=== PATIENT | female | born 1970 | race Asian ===

== ENCOUNTER 2016-06-22 17:10 | Emergency (ER) | payer SELFPAY ==
[2016-06-22] MEDS ORDERED: MAG HYDROX/AL HYDROX/SIMETH 30 ML UNIT-DOSE CUP PO ONE (17:28)
[2016-06-22] MEDS ORDERED: FAMOTIDINE 20 MG/50 ML IVPB 50 ML IVPB ONE ×2 (17:28→17:54)
[2016-06-22] MEDS ORDERED: ACETAMINOPHEN 325 MG TABLET (FP) PO ONE (17:28)
--- NOTE | 2016-06-22 17:29 | PDOC ---
History of Present Illness - General History Source: Patient Exam Limitations: No Limitations - History of Present Illness Initial Comments: 06/22/16 17:51 The patient is a 46 year old female with no medical history, who presents to the ED with multiple complaints. Patient states she started experiencing pain in the left arm that radiated to the left flank two nights ago. Patient states the pain was extreme and it woke her up from her sleep. Patient complains of intermittent nausea, SOB, and dizziness. She complains of a tight neck as well. She is overly concerned because of extensive family history of cardiac issues. <Randy Araujo - Last Filed: 06/22/16 17:51> - General History Source: Patient Exam Limitations: No Limitations <Moreno Madrid - Last Filed: 06/22/16 19:12> - General Chief Complaint: Vomiting/Diarrhea Stated Complaint: NAUSEA, DIARRHEA SINCE YESTERDAY Time Seen by Provider: 06/22/16 17:13 Past History <Randy Araujo - Last Filed: 06/22/16 17:51> - Past Medical History Anemia: No Asthma: No Cancer: No Cardiac Disorders: No CVA: No COPD: No CHF: No Dementia: No Diabetes: No Dialysis: (AV fistula placed) GI Disorders: No Disorders: No HTN: No Hypercholesterolemia: No Liver Disease: No Seizures: No Thyroid Disease: No - Psycho/Social/Smoking Cessation Hx Anxiety: No Suicidal Ideation: No Smoking Status: No Smoking History: Unknown if ever smoked Years of Tobacco Use: 0 Number of Cigarettes Smoked Daily: 0 Hx Alcohol Use: No Drug/Substance Use Hx: No Substance Use Type: None Hx Substance Use Treatment: No <Moreno Madrid - Last Filed: 06/22/16 19:12> - Past Medical History Allergies/Adverse Reactions: Allergies Allergy/AdvReac Type Severity Reaction Status Date / Time Penicillins Allergy Verified 01/28/13 18:52 Home Medications: Ambulatory Orders Aspirin [ASA -] 81 mg PO DAILY #100 tab.chew 01/29/13 Acetaminophen [Tylenol] 650 mg PO Q4H PRN #20 tablet 06/22/16 Famotidine [Pepcid] 20 mg PO BID PRN #20 tablet 06/22/16 Review of Systems - Review of Systems Able to Perform ROS?: Yes Comments:: 06/22/16 17:52 GENERAL/CONSTITUTIONAL: No fever or chills. No weakness. HEAD, EYES, EARS, NOSE AND THROAT: No change in vision. No ear pain or discharge. No sore throat. CARDIOVASCULAR: + SOB. No chest pain. RESPIRATORY: No cough, wheezing, or hemoptysis. GASTROINTESTINAL: + nausea. No vomiting, diarrhea or constipation. GENITOURINARY: No dysuria, frequency, or change in urination. MUSCULOSKELETAL: + left arm pain radiating to the left flank. No joint or muscle swelling or pain. SKIN: No rash NEUROLOGIC: + dizziness. No headache, vertigo, loss of consciousness, or change in strength/sensation. ENDOCRINE: No increased thirst. No abnormal weight change. HEMATOLOGIC/LYMPHATIC: No anemia, easy bleeding, or history of blood clots. ALLERGIC/IMMUNOLOGIC: No hives or skin allergy. <Randy Araujo - Last Filed: 06/22/16 17:51> *Physical Exam - Physical Exam Comments: 06/22/16 17:53 GENERAL: Awake, alert, and fully oriented, in no acute distress HEAD: No signs of trauma EYES: PERRLA, EOMI, sclera anicteric, conjunctiva clear ENT: Auricles normal inspection, hearing grossly normal, nares patent, oropharynx clear without exudates. Moist mucosa NECK: Normal ROM, supple, no lymphadenopathy, JVD, or masses LUNGS: Breath sounds equal, clear to auscultation bilaterally. No wheezes, and no crackles HEART: Regular rate and rhythm, normal S1 and S2, no murmurs, rubs or gallops ABDOMEN: Tenderness over epigastric region. normoactive bowel sounds. No guarding, no rebound. No masses EXTREMITIES: Normal range of motion, no edema. No clubbing or cyanosis. No cords, erythema, or tenderness NEUROLOGICAL: Cranial nerves II through XII grossly intact. Normal speech, normal gait SKIN: Warm, Dry, normal turgor, no rashes or lesions noted. <Randy Araujo - Last Filed: 06/22/16 17:51> Heart Score/ECG Review - History History: Slightly suspicious - Electrocardiogram EKG: Non specific repolarization disturbance - Age Age: 45-65 - Risk Factors Risk Factors Heart Score: Yes Positive family hx of cardiac disease Based on the list above the patient has:: 1-2 risk factors - Troponin Troponin: </= normal limit - Score Heart Score - Total: 3 #1 ECG reviewed & interpreted by me at: 17:40 06/22/16 18:01 NSR 86, TWI V2, no std/karlene, normal axis, normal intervals, occasional PVC, QTC 457 msec <Moreno Madrid - Last Filed: 06/22/16 19:12> ED Treatment Course - LABORATORY CBC & Chemistry Diagram: 06/22/16 17:45 06/22/16 17:45 <Moreno Madrid - Last Filed: 06/22/16 19:12> Medical Decision Making - Medical Decision Making 06/22/16 18:03 A portion of this note was documented by scribe services under my direction. I have reviewed the details of the note, within reason, and agree with the documentation with the following case summary and management plan written by me. Patient treated in the ED. Nursing notes are reviewed and incorporated into the medical decision-making. Vital signs reviewed. Peripheral IV access obtained by the nurse, laboratory studies are drawn and sent, reviewed and interpreted by myself. 46-year-old female with no past medical history presents to the emergency department for left arm pain. The patient reports that 2 days ago, she started noticing she was feeling particularly gassy. She reported that she would feeling the need to belch. Has noticed that she was having left arm pain reproducible to movements. Reports some occasional nausea but denies any midsternal chest pain or shortness of breath. She reports that the pain is waxes and wanes and occur several minutes at a time. Not exertional. The patient was concerned because she has strong family history of MIs. Though the patient has strong family history, the patient's history is very atypical for acute coronary syndrome. Given that this has occurred for nearly 2 days, we'll send a troponin. EKG demonstrates no acute findings. We'll obtain labs and treat with GERD medications. Reassess. If workup is negative, the patient be discharged with outpatient cardiology follow-up. 06/22/16 19:04 CBC, BMP 06/22/16 17:45 06/22/16 17:45 CMP Sodium 139 mmol/L (136-145) 06/22/16 17:45 Potassium 3.6 mmol/L (3.5-5.1) 06/22/16 17:45 Chloride 107 mmol/L (98-107) 06/22/16 17:45 Carbon Dioxide 27 mmol/L (22-28) 06/22/16 17:45 Anion Gap 5 (8-16) L 06/22/16 17:45 BUN 15 mg/dl (7-18) D 06/22/16 17:45 Creatinine 1.0 mg/dl (0.6-1.3) D 06/22/16 17:45 Creat Clearance w eGFR 59.18 (>60) 06/22/16 17:45 Random Glucose 123 mg/dl (74-106) H 06/22/16 17:45 Calcium 9.3 mg/dl (8.4-10.2) 06/22/16 17:45 Total Bilirubin 0.4 mg/dl (0.2-1.0) 06/22/16 17:45 AST 35 U/L (10-42) D 06/22/16 17:45 ALT 29 U/L (10-40) D 06/22/16 17:45 Alkaline Phosphatase 77 U/L (32-92) D 06/22/16 17:45 Creatine Kinase 158 IU/L (26-140) H 06/22/16 17:45 CK-MB (CK-2) 3.6 ng/ml (0.3-4.0) 06/22/16 17:45 Troponin I < 0.03 ng/ml (0.03-0.50) L 06/22/16 17:45 Total Protein 7.0 g/dl (6.4-8.3) 06/22/16 17:45 Albumin 4.1 g/dl (3.5-5.0) D 06/22/16 17:45 Lipase 38 U/L (22-51) 06/22/16 17:45 Serum , Qual Positive 06/22/16 17:45 As of note, patient is known to have a positive beta hCG prior to the arrival to the ED. The patient reports that she is not but she is under current [employer] evaluation for this mildly elevated beta hCG level. She reports last week that it was approximately 8. However, we'll await the beta hCG. We'll give her a copy and have her follow-up with her [employer] doctor. She is not having any lower abdominal pain or vaginal bleeding. The patient reports feeling better with the GERD medications. I suspect that this is likely GI in origin not cardiac. But we'll give referral to a dump truck operator for further outpatient evaluation. Patient verbalizes understanding agrees with plan. I discussed the physical exam findings, ancillary test results and final diagnoses with the patient. I answered all of the patient's questions. The patient was satisfied with the care received and felt comfortable with the discharge plan and treatment plan. The patient will call their primary care physician within 24 hours to arrange follow-up and will return to the Emergency Department with any new, persistant or worsening symptoms. <Moreno Madrid - Last Filed: 06/22/16 19:12> *DC/Admit/Observation/Transfer - Attestations Scribe Attestion: 06/22/16 17:53 Documentation prepared by Randy Araujo, acting as medical delivery technician for Moreno Madrid MD, . <Randy Araujo - Last Filed: 06/22/16 17:51> - Discharge Dispostion Admit: No <Moreno Madrid - Last Filed: 06/22/16 19:12> Diagnosis at time of Disposition: Atypical chest pain Gastritis Qualifiers: Gastritis type: unspecified gastritis Chronicity: acute Gastritis bleeding: without bleeding Qualified Code(s): K29.00 - Acute gastritis without bleeding - Discharge Dispostion Disposition: HOME Condition at time of disposition: Good - Prescriptions Prescriptions: Famotidine [Pepcid] 20 mg PO BID PRN #20 tablet PRN Reason: Gastritis Acetaminophen [Tylenol] 650 mg PO Q4H PRN #20 tablet PRN Reason: Pain - Referrals Referrals: Marizol Clement MD [Primary Care Provider] - Rebel Chaudhari MD [Staff Physician] - - Patient Instructions Printed Discharge Instructions: DI for Atypical Chest Pain, DI for Gastritis Additional Instructions: Please take the medications as prescribed. Your workup demonstrates a negative troponin and a stable EKG. At this time, you are cleared to be discharged. However, because severe family history, it is highly highly recommended that she follow up with the dump truck operator. You should be followed by one. If he notices any worsening chest pain, please return to the emergency department. In the meantime, take the medications prescribed for the pain. Regards to your beta hCG, it is important that she take this blood value and bring it to your [facility] doctor as prior.
[2016-06-22] MEDS ORDERED: ACETAMINOPHEN 325 MG TABLET (FP) ONE (17:54)
[2016-06-22 18:01] LABS: BASOPHIL 0.9 % (0-2.0); MCH 30.1 pg (25.7-33.7); MCHC 33.6 g/dl (32.0-36.0); MEAN CELL VOLUME 89.8 fl (80-96); MEAN PLT VOLUME 8.3 fl (7.5-11.1); NEUTROPHILS 50.3 % (42.8-82.8); PLATELET COUNT 348 K/MM3 (134-434); RDW 13.1 % (11.6-15.6); WHITE BLOOD COUNT 9.1 K/mm3 (4.0-10.0)
[2016-06-22 18:12] LABS: ALBUMIN 4.1 g/dl (3.5-5.0); ALK PHOS 77 U/L (32-92); ANION GAP 5 (8-16); BILIRUBIN,TOTAL 0.4 mg/dl (0.2-1.0); CALCIUM 9.3 mg/dl (8.4-10.2); CO2 27 mmol/L (22-28); CPK(DFH) 158 IU/L (26-140); GLUCOSE,RANDOM 123 mg/dl (74-106); SGOT/AST 35 U/L (10-42); SGPT/ALT 29 U/L (10-40)
[2016-06-22 18:39] VITALS: BP 115/76; PULSE 86; TEMP 98.6; BMI 28.1
[2016-06-22 18:43] LABS: TROPONIN I (DFP) < 0.03 ng/ml (0.03-0.50)
[2016-06-22 18:49] LABS: CK MB 3.6 ng/ml (0.3-4.0)
--- NOTE | 2016-06-22 20:04 | PDOC ---
*Physical Exam - Vital Signs Last Vital Signs Temp Pulse Resp BP Pulse Ox 98.6 F 86 16 115/76 99 06/22/16 17:12 06/22/16 17:12 06/22/16 17:12 06/22/16 17:12 06/22/16 17:12 06/22/16 20:51 ED Treatment Course - LABORATORY CBC & Chemistry Diagram: 06/22/16 17:45 06/22/16 17:45 - ADDITIONAL ORDERS Additional order review: Laboratory Results 06/22/16 06/22/16 06/22/16 17:45 17:45 17:45 Sodium 139 Potassium 3.6 Chloride 107 Carbon Dioxide 27 Anion Gap 5 L BUN 15 D Creatinine 1.0 D Creat Clearance w eGFR 59.18 Random Glucose 123 H Calcium 9.3 Total Bilirubin 0.4 AST 35 D ALT 29 D Alkaline Phosphatase 77 D Creatine Kinase 158 H CK-MB (CK-2) 3.6 Troponin I < 0.03 L Total Protein 7.0 Albumin 4.1 D Lipase 38 Serum , Qual Positive 06/22/16 17:45 RBC 4.39 MCV 89.8 MCHC 33.6 RDW 13.1 MPV 8.3 Neutrophils % 50.3 Lymphocytes % 40.9 H Monocytes % 5.9 Eosinophils % 2.0 Basophils % 0.9 - Medications Given in the ED: ED Medications Discontinued Medications Generic Name Dose Route Start Last Admin Trade Name Freq PRN Reason Stop Dose Admin Acetaminophen 650 mg 06/22/16 17:28 06/22/16 17:55 Tylenol - PO 06/22/16 17:29 650 mg ONCE ONE Administration Famotidine/Sodium Chloride 50 mls @ 100 mls/hr 06/22/16 17:28 06/22/16 18:00 Pepcid 20 Mg Premixed Ivpb - IVPB 06/22/16 17:57 100 mls/hr ONCE ONE Administration Progress Note - Progress Note Progress Note: The care of this patient was transferred to [place] from Dr. Madrid at 1900 hrs. Patient has a beta hCG quantitative pending. Patient will be discharged once beta hCG is back. *DC/Admit/Observation/Transfer Diagnosis at time of Disposition: Atypical chest pain Gastritis Qualifiers: Gastritis type: unspecified gastritis Chronicity: acute Gastritis bleeding: without bleeding Qualified Code(s): K29.00 - Acute gastritis without bleeding - Discharge Dispostion Disposition: HOME Condition at time of disposition: Good - Prescriptions Prescriptions: Famotidine [Pepcid] 20 mg PO BID PRN #20 tablet PRN Reason: Gastritis Acetaminophen [Tylenol] 650 mg PO Q4H PRN #20 tablet PRN Reason: Pain - Referrals Referrals: Marizol Clement MD [Primary Care Provider] - Rebel Chaudhari MD [Staff Physician] - - Patient Instructions Printed Discharge Instructions: DI for Gastritis, DI for Atypical Chest Pain Additional Instructions: Please take the medications as prescribed. Your workup demonstrates a negative troponin and a stable EKG. At this time, you are cleared to be discharged. However, because severe family history, it is highly highly recommended that she follow up with the supervisor of officials. You should be followed by one. If he notices any worsening chest pain, please return to the emergency department. In the meantime, take the medications prescribed for the pain. Regards to your beta hCG, it is important that she take this blood value and bring it to your [employer] doctor as prior. - Post Discharge Activity
--- NOTE | 2016-06-23 13:42 | EKG ---
Test Reason : Blood Pressure : / mmHG Vent. Rate : 086 BPM Atrial Rate : 086 BPM P-R Int : 184 ms QRS Dur : 086 ms QT Int : 382 ms P-R-T Axes : 075 089 068 degrees QTc Int : 457 ms SINUS RHYTHM WITH OCCASIONAL PREMATURE VENTRICULAR COMPLEXES NONSPECIFIC ST ABNORMALITY ABNORMAL ECG WHEN COMPARED WITH ECG OF 26-SEP-2011 14:49, PREMATURE VENTRICULAR COMPLEXES ARE NOW PRESENT VENT. RATE HAS INCREASED BY 33 BPM QT HAS LENGTHENED CLINICAL CORRELATION IS RECOMMENDED Confirmed by PATRICK FREEMAN MD ([id number]) on 06/23/2016 1:41:29 PM Referred By: BRIDGETTE Confirmed By:PATRICK FREEMAN MD
== END 2016-06-22 20:55 | disposition home or self-care (01) ==
LOC: FER 17:10
PROC: 3E033GC Introduction of Other Therapeutic Substance into Peripheral Vein, Percutaneous Approach (ICD-10-PCS; principal; 2016-06-22)
DX: K29.00 Acute gastritis without bleeding (principal); R07.89 Other chest pain; Z79.82 Long term (current) use of aspirin
CPT/HCPCS: 36415; 80053; 82550; 82553; 83690; 84484; 84702; 84703; 85025; 93005; 99282-25

== ENCOUNTER 2017-06-15 09:24 | Emergency (ER) | payer OTHER ==
--- NOTE | 2017-06-15 09:28 | PDOC ---
History of Present Illness - General Chief Complaint: Pain Stated Complaint: F/U LEG ULTRASOUND, ABD, BACK PAIN Time Seen by Provider: 06/15/17 09:28 - History of Present Illness Initial Comments: 06/15/17 10:40 Chief complaint: Upper back pain History of present illness: Since last night the patient has experienced upper back pain which interfered with her sleep, located between the scapulae, radiating to left arm, with numbness and tingling in the thumb index and middle fingers of her left hand. The numbness and tingling has been intermittent for many years and is unchanged. There was also epigastric pain at the time. All symptoms have now resolved. In addition, she has persistent leg pain that was evaluated with an ultrasound last week. 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 She was advised to return for follow-up by the ER physician at that time. Review of systems: Remainder systems reviewed and found to be negative Past medical, social, and family history reviewed. Father with DE at age 62, otherwise negative. Physical exam: Alert oriented well-developed well-nourished in no acute distress cheerful and cooperative. Her symptoms of last night have resolved completely. There is still residual pain in her knee, presumably from her Mackenzie cyst, which has been present for over one month Afebrile, vital signs normal PERRLA, fundi benign, ENT clear Neck supple without bruit mass or nodes Chest clear CV regular without murmur rub or gallop Abdomen soft nontender without mass or organomegaly Neurological C2 to 12 intact. Strength full and symmetric. No focal sensory or motor deficits. Gait stable and unimpaired Musculoskeletal: There is trigger point tenderness at the border of the left scapula, medially. No spinal deformity point tenderness or inflammation Impression: Symptoms do not suggest an acute coronary syndrome, but because of the patient's concern and her family history initial cardiac evaluation should be performed. No sign of DVT. No sign of other neurologic disease Plan: EKG and enzymes, wrist braces and orthopedic referral for carpal tunnel, orthopedic referral for Mackenzie cyst if ultrasound is negative. Past History - Past Medical History Allergies/Adverse Reactions: Allergies Allergy/AdvReac Type Severity Reaction Status Date / Time Penicillins Allergy Verified 06/15/17 09:26 Home Medications: Ambulatory Orders Ibuprofen [Motrin -] 600 mg PO TID #90 tablet 06/07/17 Naproxen Sodium [Aleve] 440 mg PO BID PRN 06/07/17 Aspirin [Aspirin EC] 81 mg PO Q48H 06/15/17 Anemia: No Asthma: No Cancer: No Cardiac Disorders: No CVA: No COPD: No CHF: No Dementia: No Diabetes: No Dialysis: (AV fistula placed) GI Disorders: No Disorders: No HTN: No Hypercholesterolemia: No Liver Disease: No Psychiatric Problems: Yes (ANXIETY & DEPRESSION) Seizures: No Thyroid Disease: No - Surgical History Appendectomy: Yes - Suicide/Smoking/Psychosocial Hx Smoking Status: No Smoking History: Unknown if ever smoked Years of Tobacco Use: 0 Number of Cigarettes Smoked Daily: 0 Hx Alcohol Use: No Drug/Substance Use Hx: No Substance Use Type: None Hx Substance Use Treatment: No ED Treatment Course - LABORATORY CBC & Chemistry Diagram: 06/15/17 10:21 06/15/17 10:21 Medical Decision Making - Medical Decision Making 06/15/17 12:31 Venous Doppler: Negative EKG: No acute ischemic changes Labs: No significant abnormalities, with normal cardiac enzymes Patient's symptoms of upper back pain radiating to the left shoulder are most likely musculoskeletal. Her chronic tingling of both hands, especially during the night and when she wakes up in the morning, are typical of carpal tunnel. 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 No evidence of DVT. Plan: Symptomatic treatment and orthopedic referral. Fully ambulatory, comfortable, in no significant pain or other distress upon discharge to follow- up as directed *DC/Admit/Observation/Transfer Diagnosis at time of Disposition: Mackenzie cyst Qualifiers: Laterality: unspecified laterality Qualified Code(s): M71.20 - Synovial cyst of popliteal space [Mackenzie], unspecified knee Carpal tunnel syndrome Qualifiers: Laterality: bilateral Qualified Code(s): G56.03 - Carpal tunnel syndrome, bilateral upper limbs - Discharge Dispostion Disposition: HOME Condition at time of disposition: Stable Admit: No - Referrals Referrals: Sherif Lai MD [Primary Care Provider] - 1 week Henrique Lu MD [Staff Physician] - 1 week - Patient Instructions Printed Discharge Instructions: DI for Mackenzie's Cyst, DI for Carpal Tunnel Syndrome Additional Instructions: Wear a wrist brace at night. This may help your hand symptoms See orthopedist for further treatment of your Mackenzie cyst and carpal tunnel. - Post Discharge Activity
[2017-06-15 09:36] VITALS: BP 122/82; PULSE 82; TEMP 98.2; BMI 29.0
[2017-06-15 10:36] LABS: BASO % 0.7 % (0-2.0); EOS % 2.7 % (0-4.5); HEMATOCRIT 38.9 % (32.4-45.2); HEMOGLOBIN 13.1 GM/dl (10.7-15.3); LYMPH % 37.4 % (8-40); MCH 30.7 pg (25.7-33.7); MCHC 33.7 g/dl (32.0-36.0); MEAN CELL VOLUME 91.2 fl (80-96); MEAN PLT VOLUME 8.1 fl (7.5-11.1); MONO % 9.9 % (3.8-10.2); NEUT % 49.3 % (42.8-82.8); PLATELET COUNT 333 K/MM3 (134-434); RBC 4.26 M/mm3 (3.60-5.2); RDW 13.1 % (11.6-15.6); WHITE BLOOD COUNT 7.9 K/mm3 (4.0-10.8)
[2017-06-15 11:00] LABS: ALBUMIN 3.9 g/dl (3.5-5.0); ALK PHOS 75 U/L (32-92); ANION GAP 3 (8-16); BILIRUBIN,TOTAL 0.4 mg/dl (0.2-1.0); BLOOD UREA NITROGEN 14 mg/dl (7-18); CHLORIDE 106 mmol/L (98-107); CO2 27 mmol/L (22-28); CREATININE 0.5 mg/dl (0.6-1.3); GLUCOSE,RANDOM 99 mg/dl (74-106); POTASSIUM 4.2 mmol/L (3.5-5.1); SGOT/AST 37 U/L (10-42); SGPT/ALT 52 U/L (10-40); SODIUM 136 mmol/L (136-145); TOT PROT 6.7 g/dl (6.4-8.3)
[2017-06-15] MEDS ORDERED: IBUPROFEN 600 MG TABLET (FP) PO ONE ×2 (11:31→11:36)
--- NOTE | 2017-06-16 13:03 | EKG ---
Test Reason : Blood Pressure : / mmHG Vent. Rate : 082 BPM Atrial Rate : 082 BPM P-R Int : 204 ms QRS Dur : 092 ms QT Int : 368 ms P-R-T Axes : 068 067 045 degrees QTc Int : 429 ms SINUS RHYTHM WITH SINUS ARRHYTHMIA WITH OCCASIONAL PREMATURE VENTRICULAR COMPLEXES OTHERWISE NORMAL ECG WHEN COMPARED WITH ECG OF 22-JUN-2016 17:39, NO SIGNIFICANT CHANGE WAS FOUND Confirmed by TRAN OLSON, LACY ([id number]) on 06/16/2017 1:03:22 PM Referred By: TOM REIS Confirmed By:LACY MAYFIELD MD
== END 2017-06-15 12:40 | disposition home or self-care (01) ==
LOC: FER 09:24
DX: M71.20 Synovial cyst of popliteal space [Baker], unspecified knee (principal); G56.03 Carpal tunnel syndrome, bilateral upper limbs
CPT/HCPCS: 36415; 80053; 82550; 84484; 85025; 93005; 93971-TC; 99284-25

== ENCOUNTER 2018-01-04 17:47 | Emergency (ER) | payer OTHER ==
[2018-01-04 17:52] VITALS: BMI 28.8
[2018-01-04 18:59] LABS: URINE APPEARANCE Clear; URINE BILIRUBIN Negative (NEGATIVE); URINE COLOR Yellow; URINE GLUCOSE (UA) Negative (NEGATIVE); URINE KETONE Negative (NEGATIVE); URINE LEUK ESTERASE 1+ (NEGATIVE); URINE NITRITE Negative (NEGATIVE); URINE PROTEIN Negative (NEGATIVE); URINE UROBILINOGEN 0.2 (0.2-1.0)
[2018-01-04 19:05] LABS: HCG,QUALITATIVE URINE Negative
[2018-01-04 19:13] LABS: EPI CELLS FEW /HPF; URINE BACTERIA 2+ /hpf (NEGATIVE); URINE RBC 0-2 /hpf (0-3)
[2018-01-04 19:17] LABS: BASO % 0.5 % (0-2.0); EOS % 2.2 % (0-4.5); HEMATOCRIT 40.5 % (32.4-45.2); HEMOGLOBIN 13.2 GM/dl (10.7-15.3); LYMPH % 44.6 % (8-40); MCH 30.3 pg (25.7-33.7); MCHC 32.7 g/dl (32.0-36.0); MEAN CELL VOLUME 92.6 fl (80-96); MEAN PLT VOLUME 8.1 fl (7.5-11.1); MONO % 7.6 % (3.8-10.2); NEUT % 45.1 % (42.8-82.8); PLATELET COUNT 347 K/MM3 (134-434); RBC 4.37 M/mm3 (3.60-5.2); RDW 13.3 % (11.6-15.6); WHITE BLOOD COUNT 7.8 K/mm3 (4.0-10.8)
[2018-01-04 19:32] LABS: ALBUMIN 4.1 g/dl (3.5-5.0); ALK PHOS 71 U/L (32-92); ANION GAP 2 MMOL/L (8-16); BILIRUBIN,TOTAL 0.4 mg/dl (0.2-1.0); BLOOD UREA NITROGEN 14 mg/dl (7-18); CHLORIDE 106 mmol/L (98-107); CO2 28 mmol/L (22-28); GLUCOSE,RANDOM 119 mg/dl (74-106); POTASSIUM 3.8 mmol/L (3.5-5.1); SGOT/AST 36 U/L (10-42); SGPT/ALT 47 U/L (10-40); SODIUM 136 mmol/L (136-145); TOT PROT 7.2 g/dl (6.4-8.3)
[2018-01-04 19:33] LABS: CREATININE < 0.6 mg/dl (0.6-1.3)
--- NOTE | 2018-01-04 19:38 | PDOC ---
History of Present Illness <Tsering Phillips - Last Filed: 01/04/18 20:18> <Vandana Linder - Last Filed: 01/05/18 01:33> - General Chief Complaint: Chest Pain Stated Complaint: CHEST PAIN Time Seen by Provider: 01/04/18 19:32 - History of Present Illness Initial Comments: 01/04/18 19:40 The patient is a 37 year old female, with a significant past medical history GERD, who presents to the emergency department with complaint of intermittent, sharp left upper chest pain lasting minutes and recurring every hour since yesterday. She denies radiation pain, however, reports a separate intermittent pain to her upper back. She states she had a 5 minute episode of left arm pain radiating from her left neck with associated numbness to her first 3 digits of her LUE. She states she started a new job which requires her to look up at a computer screen and admits to feeling a neck strain while doing so. She denies any exacerbating or alleviating factors of chest pain. She states she has been eating just before going to sleep for the past couple of days. She denies taking any OTC medications for her symptoms. She denies any other associated symptoms. Secondarily she reportedly started working out in the gym the day before her onset of symptoms. She reportedly had a normal cardiac echo, stress test, and holter within 1 year. The patient denies shortness of breath, headache and dizziness. The patient denies fever, chills, nausea, vomit, diarrhea and constipation. The patient denies dysuria, frequency, urgency and hematuria. Allergies: Penicillins Past surgical history: none reported Social history: Denies toxic habits Family History: ACS (Sudden cardiac demise: aunt 40s, nephew 32, father early 60s) (Tsering Phillips) Past History <Tsering Phillips - Last Filed: 01/04/18 20:18> - Past Medical History Anemia: No Asthma: No Cancer: No Cardiac Disorders: No CVA: No COPD: No CHF: No Dementia: No Diabetes: No Dialysis: (AV fistula placed) GI Disorders: No Disorders: No HTN: No Hypercholesterolemia: No Liver Disease: No Psychiatric Problems: Yes (ANXIETY & DEPRESSION) Seizures: No Thyroid Disease: No - Surgical History Appendectomy: Yes - Suicide/Smoking/Psychosocial Hx Smoking Status: No Smoking History: Never smoked Years of Tobacco Use: 0 Number of Cigarettes Smoked Daily: 0 Hx Alcohol Use: No Drug/Substance Use Hx: No Substance Use Type: None Hx Substance Use Treatment: No <Vandana Linder - Last Filed: 01/05/18 01:33> - Past Medical History Allergies/Adverse Reactions: Allergies Allergy/AdvReac Type Severity Reaction Status Date / Time Penicillins Allergy Verified 01/04/18 17:48 Home Medications: Ambulatory Orders Ibuprofen [Motrin -] 600 mg PO TID #90 tablet 06/07/17 Naproxen Sodium [Aleve] 440 mg PO BID PRN 06/07/17 Aspirin [Aspirin EC] 81 mg PO Q48H 06/15/17 Cardiac Specific PMH - Complaint Specific PMHX Pacemaker: No <Vandana Linder - Last Filed: 01/05/18 01:33> Review of Systems - Review of Systems Able to Perform ROS?: Yes <Tsering Phillips - Last Filed: 01/04/18 20:18> <Vandana Linder - Last Filed: 01/05/18 01:33> - Review of Systems Comments:: 01/04/18 19:40 CONSTITUTIONAL: Absent: fever, chills, diaphoresis, generalized weakness, malaise, loss of appetite HEENT: Absent: rhinorrhea, nasal congestion, throat pain, throat swelling, difficulty swallowing,mouth swelling, ear pain, eye pain, visual Changes CARDIOVASCULAR: (+) chest pain, Absent:syncope, palpitations, irregular heart rate, lightheadedness, peripheral edema RESPIRATORY: Absent: cough, shortness of breath, dyspnea with exertion, orthopnea, wheezing, stridor, hemoptysis GASTROINTESTINAL: Absent: abdominal pain, abdominal distension, nausea, vomiting, diarrhea, constipation, melena, hematochezia GENITOURINARY: Absent: dysuria, frequency, urgency, hesitancy, hematuria, flank pain, genital pain MUSCULOSKELETAL: (+) upper back pain. Absent: arthralgia, joint swelling SKIN: Absent: rash, itching, pallor HEMATOLOGIC/IMMUNOLOGIC: Absent: easy bleeding, easy bruising, lymphadenopathy, frequent infections ENDOCRINE: Absent: unexplained weight gain, unexplained weight loss, heat intolerance, cold intolerance NEUROLOGIC: Absent: headache, focal weakness or paresthesias, dizziness, unsteady gait, seizure, mental status changes, bladder or bowel incontinence PSYCHIATRIC: Absent: anxiety, depression, suicidal or homicidal ideation, hallucinations. (Tsering Phillips) *Physical Exam <Tsering Phillips - Last Filed: 01/04/18 20:18> <Vandana Linder - Last Filed: 01/05/18 01:33> - Vital Signs Last Vital Signs Temp Pulse Resp BP Pulse Ox 98.5 F 81 16 115/81 100 01/04/18 20:13 01/04/18 20:13 01/04/18 20:13 01/04/18 20:13 01/04/18 20:13 - Physical Exam Comments: 01/04/18 19:41 GENERAL: The patient is awake, alert, and fully oriented, in no acute distress. HEAD: Normal with no signs of trauma. EYES: Pupils equal, round and reactive to light, extraocular movements intact, sclera anicteric, conjunctiva clear with no pallor. ENT: Ears normal, nares patent, oropharynx clear without exudates. Moist mucous membranes. NECK: Normal range of motion, supple without lymphadenopathy, JVD, or masses. LUNGS: Breath sounds equal, clear to auscultation bilaterally. No wheeze/ crackles. HEART: Regular rate and rhythm, normal S1 and S2 without murmur or rub. ABDOMEN: Soft/nontender/nondistended. BS wnl. No guarding or rebound. No palpable masses. No hepatosplenomegaly. EXTREMITIES: Normal range of motion, no edema. No clubbing or cyanosis. No cords , erythema, or tenderness. NEUROLOGICAL: Cranial nerves II through XII grossly intact. Normal speech, normal gait. PSYCH: Normal mood, normal affect. SKIN: Warm, Dry, normal turgor, no rashes or lesions noted. (Tsering Phillips) ED Treatment Course - LABORATORY CBC & Chemistry Diagram: 01/04/18 19:00 01/04/18 19:00 <Tsering Phillips - Last Filed: 01/04/18 20:18> - LABORATORY CBC & Chemistry Diagram: 01/04/18 19:00 01/04/18 19:00 <Vandana Linder - Last Filed: 01/05/18 01:33> - ADDITIONAL ORDERS Additional order review: Laboratory Results 01/04/18 01/04/1801/04/18 19:00 19:00 18:50 Sodium 136 Potassium 3.8 Chloride 106 Carbon Dioxide 28 Anion Gap 2 L BUN 14 Creatinine < 0.6 L Creat Clearance w eGFR > 60 Random Glucose 119 H D Calcium 9.0 Total Bilirubin 0.4 AST 36 ALT 47 H Alkaline Phosphatase 71 Creatine Kinase 101 Troponin I < 0.03 Total Protein 7.2 Albumin 4.1 Urine Color Yellow Urine Appearance Clear Urine pH 7.0 Ur Specific [place] 1.010 Urine Protein Negative Urine Glucose (UA) Negative Urine Ketones Negative Urine Blood Negative Urine Nitrite Negative Urine Bilirubin Negative Urine Urobilinogen 0.2 Ur Leukocyte Esterase 1+ H Urine RBC 0-2 Urine WBC 5-10 Ur Epithelial Cells Few Urine Bacteria 2+ Urine HCG, Qual Negative 01/04/18 19:00 RBC 4.37 MCV 92.6 MCHC 32.7 RDW 13.3 MPV 8.1 Neutrophils % 45.1 Lymphocytes % 44.6 H Monocytes % 7.6 Eosinophils % 2.2 Basophils % 0.5 - Medications Given in the ED: ED Medications Discontinued Medications Generic Name Dose Route Start Last Admin Trade Name Christopher PRN Reason Stop Dose Admin Al Hydroxide/Mg Hydroxide 30 ml 01/04/18 19:52 01/04/18 20:10 Mylanta Oral Suspension - PO 01/04/18 19:53 30 ml ONCE ONE Administration Famotidine 20 mg 01/04/18 19:53 01/04/18 20:10 Pepcid - PO 01/04/18 19:54 20 mg ONCE ONE Administration Medical Decision Making <Tsering Phillips - Last Filed: 01/04/18 20:18> <Vandana Linder - Last Filed: 01/05/18 01:33> - Medical Decision Making Documentation has been prepared under my direction and personally reviewed by me in its entirety. I attest that this documented accurately reflects all work, treatment, procedures and medical decision making performed by me. As noted above, this 47-year-old woman with a history of GERD and strong family history of sudden cardiac , presents with a few day history of left-sided chest pain as well as left arm pain. Of note, the chest pain began the day after the patient started going to a gym. Also, her left arm pain is accompanied by some intermittent finger numbness. She has been having recent neck and left upper back pain after using a new monitor at work. No other associated symptoms. Exam as noted. Twelve-lead electrocardiogram performed and interpreted by me. This shows normal sinus rhythm at 81 bpm; intervals, wave forms and axis are all normal. There is no evidence of acute ST or T-wave abnormalities. No evidence of acute arrhythmia. Laboratory evaluation including troponin are essentially normal except for urinalysis which shows 2+ LE/wbcs/RBCs and bacteria. Patient has no symptoms consistent with UTI, however, urine culture and sensitivity has been sent Clinical presentation most consistent with atypical chest pain: GERD as well as muscle strain or cervical spinal nerve issues may be possible causes of her pain. Patient was given Pepcid and Mylanta to address GERD symptoms. Patient was seen by director financial services within the last year for similar symptoms with negative workup as noted above. She will follow up again with her director financial services within the next week. She should return to the ER if she has any persistent symptoms of chest pain, shortness of breath, palpitations. (Vandana Linder) *DC/Admit/Observation/Transfer <Tsering Phillips - Last Filed: 01/04/18 20:18> <Vandana Linder - Last Filed: 01/05/18 01:33> Diagnosis at time of Disposition: Atypical chest pain - Discharge Dispostion Disposition: HOME Condition at time of disposition: Stable - Patient Instructions Printed Discharge Instructions: DI for Atypical Chest Pain Additional Instructions: Avoid strenuous upper body exercise for the next week followup with your director financial services within the next week return to ER immediately if you have persistent chest/arm pain - Attestations Scribe Attestion: 01/04/18 19:41 Documentation prepared by Tsering Phillips, acting as senior medical technologist for Vandana Linder MD (Tsering Phillips)
[2018-01-04] MEDS ORDERED: MAG HYDROX/AL HYDROX/SIMETH 30 ML UNIT-DOSE CUP PO ONE (19:52)
[2018-01-04] MEDS ORDERED: FAMOTIDINE 20 MG TABLET PO ONE (19:53)
[2018-01-04] MEDS ORDERED: MAG HYDROX/AL HYDROX/SIMETH 30 ML UNIT-DOSE CUP ONE (20:03)
[2018-01-04] MEDS ORDERED: FAMOTIDINE 20 MG TABLET ONE (20:04)
[2018-01-04 20:17] VITALS: BP 115/81; PULSE 81; TEMP 98.5
--- NOTE | 2018-01-05 09:57 | EKG ---
Test Reason : Blood Pressure : / mmHG Vent. Rate : 081 BPM Atrial Rate : 081 BPM P-R Int : 186 ms QRS Dur : 088 ms QT Int : 384 ms P-R-T Axes : 056 068 052 degrees QTc Int : 446 ms NORMAL SINUS RHYTHM NORMAL ECG WHEN COMPARED WITH ECG OF 15-JUN-2017 09:47, PREMATURE VENTRICULAR COMPLEXES ARE NO LONGER PRESENT Confirmed by TRAN OLSON, LACY ([id number]) on 01/05/2018 9:57:05 AM Referred By: DR LAURENT Confirmed By:LACY MAYFIELD MD
== END 2018-01-04 20:24 | disposition home or self-care (01) ==
LOC: FER 17:47
DX: R07.89 Other chest pain (principal); K21.9 Gastro-esophageal reflux disease without esophagitis; Z82.41 Family history of sudden cardiac death
CPT/HCPCS: 36415; 80053; 81003; 81015; 82550; 84484; 84703; 85025; 87086; 93005; 99283-25

== ENCOUNTER 2019-03-26 12:31 | Emergency (ER) | payer OTHER ==
--- NOTE | 2019-03-26 12:49 | PDOC ---
History of Present Illness - General Chief Complaint: Respiratory Stated Complaint: FLU Time Seen by Provider: 03/26/19 12:49 - History of Present Illness Initial Comments: 03/26/19 14:16 Pt presents to the ED complaining of the acute onset of cough, subjective fever , myalgias, nausea and vomiting yesterday. Febrile to 104 at home. Denies past medical history. Several episodes of non bloody, non bilious vomiting. Past History - Past Medical History Allergies/Adverse Reactions: Allergies Allergy/AdvReac Type Severity Reaction Status Date / Time Penicillins Allergy Verified 03/26/19 12:38 Home Medications: Ambulatory Orders Ibuprofen [Motrin -] 600 mg PO TID PRN 03/26/19 Oseltamivir Phosphate [Tamiflu] 75 mg PO BID #10 capsule 03/26/19 Anemia: No Asthma: No Cancer: No Cardiac Disorders: No CVA: No COPD: No CHF: No Dementia: No Diabetes: No Dialysis: (AV fistula placed) GI Disorders: No Disorders: No HTN: No Hypercholesterolemia: No Liver Disease: No Psychiatric Problems: Yes (ANXIETY & DEPRESSION) Seizures: No Thyroid Disease: No - Surgical History Appendectomy: Yes - Psycho Social/Smoking Cessation Hx Smoking Status: No Smoking History: Never smoked Years of Tobacco Use: 0 Number of Cigarettes Smoked Daily: 0 Hx Alcohol Use: No Drug/Substance Use Hx: No Substance Use Type: None Hx Substance Use Treatment: No Review of Systems - Review of Systems Able to Perform ROS?: Yes Is the patient limited Gambian proficient: No Constitutional: Yes: Chills, Fever, Night Sweats HEENTM: No: Symptoms Reported, See HPI, Eye Pain, Blurred Vision, Tearing, Recent change in vision, Double Vision, Cataracts, Ear Pain, Ocular Prothesis, Ear Discharge, Nose Pain, Nose Congestion, Tinnitus, Nose Bleeding, Hearing Loss , Throat Pain, Throat Swelling, Mouth Pain, Dental Problems, Difficulty Swallowing, Mouth Swelling, Other Respiratory: Yes: Cough Cardiac (ROS): No: Symptoms Reported, See HPI, Chest Pain, Edema, Irregular Heart Rate, Lightheadedness, Palpitations, Syncope, Chest Tightness, Other ABD/GI: Yes: Nausea, Vomiting : No: Symptoms Reported, See HPI, Burning, Dysuria, Discharge, Frequency, Flank Pain, Hematuria, Incontinence, Pain, Urgency, Testicular Mass, Testicular Swelling, Lesions, Testicular Pain, Other Musculoskeletal: Yes: Muscle Pain All Other Systems: Reviewed and Negative *Physical Exam - Physical Exam 03/26/19 14:58 Gen: alert, NAD HEENT: throat no erythema or exudate CV: rrr no m/r/g Pulm: CTA b/l abd: soft, non tender, non distended, no guarding or rebound Medical Decision Making - Medical Decision Making 03/26/19 15:00 Pt presents to the ED complaining of nausea, vomiting, fever, body aches and myalgias. Symptoms are most consistent with flu or other viral syndrome. Febrile and tachycardic in the ED. Will treat with IV hydration, check flu swab and reassess. Discharge - Discharge Information Problems reviewed: Yes Clinical Impression/Diagnosis: Influenza A Condition: Good - Admission No - Follow up/Referral Referrals: Sherif Lai MD [Primary Care Provider] - - Patient Discharge Instructions Patient Printed Discharge Instructions: DI for Influenza -- Adult Additional Instructions: you came to the ED for fever and vomiting. You tested positive for the flu, which is probably causing your symptoms. I prescribed a medicine called tamiflu , which should help make the illness shorter. You should return to the ED for worsening symptoms, including severe nausea and vomiting, unable to keep fluids down, severe chest or abdominal pain, severe headache or confusion, shortness of breath, other new or worsening symptoms. - Post Discharge Activity
[2019-03-26 12:55] VITALS: BMI 27.9
[2019-03-26] MEDS ORDERED: SODIUM CHLORIDE 0.9% 500 ML INFUS.BAG IV ONE (13:09)
[2019-03-26] MEDS ORDERED: ACETAMINOPHEN 1000 MG/100 ML VIAL (NON FORMULARY) IVPB ONE (13:10)
[2019-03-26] MEDS ORDERED: ACETAMINOPHEN INJECTION 100 ML IVPB ONE (13:54)
[2019-03-26 16:34] VITALS: BP 105/63; PULSE 90; TEMP 99.3
[2019-03-26] MEDS ORDERED: ONDANSETRON *ODT* 4 MG TABLET SL ONE (16:38)
[2019-03-26] MEDS ORDERED: ONDANSETRON *ODT* 4 MG TABLET ONE (16:38)
== END 2019-03-26 16:48 | disposition home or self-care (01) ==
LOC: FER 12:31
PROC: 3E033NZ Introduction of Analgesics, Hypnotics, Sedatives into Peripheral Vein, Percutaneous Approach (ICD-10-PCS; principal; 2019-03-26)
DX: J09.X2 Influenza due to identified novel influenza A virus with other respiratory manifestations (principal); Z88.0 Allergy status to penicillin; F41.8 Other specified anxiety disorders
CPT/HCPCS: 87804; 99283-25; J0131; Q0162

== ENCOUNTER 2021-06-20 19:15 | Emergency (ER) | payer OTHER ==
[2021-06-20] MEDS ORDERED: ACETAMINOPHEN 500 MG TABLET (FP) PO ONE (19:35)
[2021-06-20 19:37] VITALS: BMI 27.6
[2021-06-20] MEDS ORDERED: ACETAMINOPHEN 500 MG TABLET (FP) ONE (19:38)
[2021-06-20 20:46] LABS: EPITHELIAL CELLS FEW /hpf
[2021-06-20] MEDS ORDERED: SODIUM CHLORIDE 1,000 ML IV STA ×2 (21:20→23:48)
[2021-06-20 21:53] LABS: ALBUMIN 3.8 g/dl (3.4-5.0); BILIRUBIN,TOTAL 1.3 mg/dl (0.2-1); CALCIUM 9.1 mg/dl (8.5-10); CREATININE 0.7 mg/dl (0.55-1.3)
[2021-06-20 22:57] LABS: BASO % 0.3 % (0-2.0); HEMOGLOBIN 12.6 GM/dL (10.7-15.3); LYMPH % 17.5 % (8-40); MCH 30.3 pg (25.7-33.7); MCHC 33.2 g/dl (32.0-36.0); MEAN CELL VOLUME 91.3 fl (80-96); MEAN PLT VOLUME 8.5 fl (7.5-11.1); MONO % 9.9 % (3.8-10.2); NEUT % 72.3 % (42.8-82.8); PLATELET COUNT 283 10^3/uL (134-434); RBC 4.16 M/mm3 (3.60-5.2); RDW 13.8 % (11.6-15.6); WHITE BLOOD COUNT 13.7 K/mm3 (4.0-10.0)
[2021-06-21] MEDS ORDERED: VANCOMYCIN 1,000 MG in DEXTROSE 5%-WATER - 250 ML IVPB ONE (00:13)
[2021-06-21] MEDS ORDERED: VANCOMYCIN 1,000 MG VIAL (RESTRICTED TO ID ONLY) ONE (00:21)
[2021-06-21 01:21] VITALS: BP 133/72; PULSE 114; TEMP 103
[2021-06-21] MEDS ORDERED: ACETAMINOPHEN 1000 MG/100 ML BAG IVPB ONE (01:37)
[2021-06-21] MEDS ORDERED: ACETAMINOPHEN INJECTION 100 ML IVPB ONE (01:41)
== END 2021-06-21 02:20 | disposition left against medical advice (07) ==
LOC: FER 19:15
PROC: 3E033GC Introduction of Other Therapeutic Substance into Peripheral Vein, Percutaneous Approach (ICD-10-PCS; principal; 2021-06-20)
DX: N12 Tubulo-interstitial nephritis, not specified as acute or chronic (principal)
CPT/HCPCS: 36415; 71045-TC-FY; 74177-TC; 80053; 81003; 81015; 85025; 87040; 87086; 87186; 93005; 96361; 96365; 96375; 99285-25; C9803-CS; U0003; U0005